=== PATIENT | female | born 1985 | race Caucasian/White ===

== ENCOUNTER 2019-02-11 21:40 | Emergency (ER) | payer OTHER ==
[~2019-02-11] VITALS: Ht 165.1 cm; Wt 74.4 kg
[2019-02-11 22:06] VITALS: BP 127/77
[2019-02-11] MEDS ORDERED: predniSONE 20 MG TABLET ONE (22:25)
[2019-02-11] MEDS ORDERED: ALBUTEROL FS 2.5 MG/3 ML VIAL.NEB NEB ONE (22:30)
[2019-02-11] MEDS ORDERED: IPRATROPIUM NEB FS 0.5 MG/2.5 ML AMPUL.NEB NEB ONE (22:30)
[2019-02-11] MEDS ORDERED: predniSONE 20 MG TABLET PO ONE (22:30)
[2019-02-11] MEDS ORDERED: ALBUTEROL FS 2.5 MG/3 ML VIAL.NEB ONE (22:32)
[2019-02-11] MEDS ORDERED: IPRATROPIUM NEB FS 0.5 MG/2.5 ML AMPUL.NEB ONE (22:33)
--- NOTE | 2019-02-11 23:49 | NUR ---
PT NO LONGER AT BEDSIDE. Patient eloped from facility. ER MD notified.
== END 2019-02-12 00:24 | disposition left against medical advice (07) ==
LOC: ER 21:44
DX: O99.513 Diseases of the respiratory system complicating pregnancy, third trimester (principal); J06.9 Acute upper respiratory infection, unspecified; Z3A.30 30 weeks gestation of pregnancy
CPT/HCPCS: 94640; 99283; J7512

== ENCOUNTER 2020-08-30 09:59 | Emergency (ER) | payer MEDICAID, OTHER ==
[~2020-08-30] VITALS: Ht 165.1 cm; Wt 61.7 kg
[2020-08-30 10:07] VITALS: BP 109/71
[2020-08-30] MEDS ORDERED: CEPH500C2 PO (10:18)
[2020-08-30] MEDS ORDERED: TRAM50TA2 PO (10:18)
--- NOTE | 2020-08-30 10:47 | NUR ---
Patient discharged to home in stable condition. Written and verbal after care instructions given. Patient verbalizes understanding of instruction.
== END 2020-08-30 10:47 | disposition home or self-care (01) ==
LOC: ER 09:59
DX: S69.82XA Other specified injuries of left wrist, hand and finger(s), initial encounter (principal); W22.8XXA Striking against or struck by other objects, initial encounter; Y93.89 Activity, other specified; Y92.89 Other specified places as the place of occurrence of the external cause; Y99.8 Other external cause status
CPT/HCPCS: 99283; A6403

== ENCOUNTER 2020-09-06 14:41 | Emergency (ER) | payer MEDICAID ==
[~2020-09-06] VITALS: Ht 152.4 cm; Wt 54.4 kg
[~2020-09-06 14:41] MED LIST: CEPH500C2 PO; TRAM50TA2 PO
[2020-09-06 15:12] VITALS: BP 141/81
--- NOTE | 2020-09-06 15:49 | NUR ---
DC home instruction noted agrees to foolw up pmd .
== END 2020-09-06 15:50 | disposition home or self-care (01) ==
LOC: ER 14:44
DX: S61.101A Unspecified open wound of right thumb with damage to nail, initial encounter (principal); Z79.899 Other long term (current) drug therapy; X58.XXXA Exposure to other specified factors, initial encounter; Y93.89 Activity, other specified; Y92.89 Other specified places as the place of occurrence of the external cause; Y99.8 Other external cause status

== ENCOUNTER 2021-08-08 08:49 | Emergency (ER) | payer MEDICAID ==
[~2021-08-08] VITALS: Ht 160 cm; Wt 61.7 kg
--- NOTE | 2021-08-08 09:00 | NUR ---
BIB C/O L ANKLE PAIN 12/17 STARTED YESTERDAY MORNING. DENIES INJURY. NO APPARENT DEFORMITY NOTED. WILL CONTINUE TO MONITOR THE PATIENT.
--- NOTE | 2021-08-08 09:03 | NUR ---
SEEN AND EXAMINED BY .
--- NOTE | 2021-08-08 09:38 | NUR ---
US TECH AT THE BEDSIDE
[2021-08-08] MEDS ORDERED: NAPR-1164 PO (09:48)
--- NOTE | 2021-08-08 10:17 | NUR ---
Patient discharged to home in stable condition. Written and verbal after care instructions given. Patient verbalizes understanding of instruction. The patient is picked up by her .
[2021-08-08 10:18] VITALS: BP 101/67
== END 2021-08-08 10:19 | disposition home or self-care (01) ==
LOC: ER 08:50
DX: M25.572 Pain in left ankle and joints of left foot (principal); Z79.891 Long term (current) use of opiate analgesic; Z79.899 Other long term (current) drug therapy
CPT/HCPCS: 73590-TC; 93971-TC